=== PATIENT | male | born 1980 | race Caucasian/White ===

== ENCOUNTER → 2019-09-23 | Outpatient (CLI) | payer OTHER, SELFPAY ==
[2019-09-23 12:47] LABS: Cholesterol 219 mg/dL (200); Glucose 92 mg/dL (74-106); High Density Lipoprotein 33 mg/dL; Triglycerides 473 mg/dL
== END | disposition home or self-care (01) ==
LOC: MTLAB 10:17
PROVIDERS: PCP Family Medicine; Referring Provider Family Medicine; Visit Provider Family Medicine
DX: Z00.00 Encounter for general adult medical examination without abnormal findings (principal)
CPT/HCPCS: 36415; 80061; 82947

== ENCOUNTER 2021-10-31 08:10 | Emergency (ER) | payer BC, OTHER, SELFPAY ==
[2021-10-31 08:11] VITALS: BP 122/84; PULSE 77; RESP 14; TEMP 36.7; O2SAT 97; BMI 30.4
--- NOTE | 2021-10-31 08:35 | EDS_ITS ---
HPI History of Present Illness Chief Complaint: Laceration Informant: patient Narrative Narrative: Left lower lip laceration 2 hours prior to arrival. Playing basketball to get elbow to the lip. No anticoagulation medicines. Tetanus 2 years ago. States mild dental pain and upper. No LOC. No neck pain. Tetanus Immunization: <5 years [facility] Medical History no medical history Home Medications NK 10/31/21 [History Last Taken Unknown] Allergy/AdvReac Type Severity Reaction Status Date / Time No Known Allergies Allergy Verified 10/31/21 08:11 Surgical History no surgical history Social History Smoking Status: Never smoker ROS ROS ED Constitutional Constitutional ED: Denies chills, fever(s) or sweats Eyes Eyes: Denies change in vision ENT ENT ED: Denies dysphagia or sore throat Cardiovascular Cardiovascular: Denies chest pain, leg edema, palpitations or racing heartbeat Respiratory/Chest Respiratory/Chest: Denies cough, dyspnea or dyspnea on exertion Gastrointestinal Gastrointestinal: Denies abdominal pain, diarrhea, nausea or vomiting Genitourinary Genitourinary ED: Denies dysuria, hematuria or urinary frequency Musculoskeletal Musculoskeletal: Denies back pain, extremity pain or neck pain Integumentary Reports rash and other Details: Left lower lip laceration ; Denies wounds Neurologic Neurologic: Denies headache(s), paresthesias or weakness EXAM Physical Exam Const Vital Signs: 10/31/21 08:11 Temperature 98.1 F Temperature Source Oral Pulse Rate 77 Respiratory Rate 14 Blood Pressure 122/84 H Blood Pressure Mean 96 Pulse Ox 97 Oxygen Delivery Method Room Air Positive well nourished and well developed General Appearance ED: well developed and NAD HEENT Reports moist mucous membranes HEENT Narrative: Left lower lip, 2 cm laceration just crossing at the vermilion border, there is no active bleeding. There is no dental loosening, there is mild tenderness to left upper incisor. No avulsions. Also very superficial inner lower lip laceration 1.5 cm there is no active bleeding or open. normocephalic Eyes PERRL, EOMs intact bilaterally and conjunctivae normal General Eye ED: Yes normal appearance of both eyes Neck no lymphadenopathy and supple General: Negative for tenderness Chest Wall Chest: Negative for tenderness Resp normal respiratory effort and normal air movement Effort and Inspection: symmetric chest movement; Negative for respiratory distress Cardio regular rate, regular rhythm and no murmurs Peripheral Pulses: pulses 2+ throughout GI normal to inspection, nondistended, normoactive bowel sounds and non-tender Palpation: Negative for guarding or rebound tenderness present Back/Spine no CVA tenderness and no thoracic nor lumbar tenderness Extremity normal to inspection General Extremety ED: Negative for edema or tenderness General Extremity: Negative for edema Neuro oriented x3 and no sensory deficits noted Sensorium / Orientation: awake and alert Skin no rashes or lesions noted and no wounds MDM MDM MDM Narrative Medical decision making narrative: Patient with lip laceration just crossing veronica milion border. This was repaired with no complications. Patient did feel nausea during procedure due to his anxiety of the procedure. Wound care discussed. Follow-up with his PCP for suture removal. Discussed inner lip laceration will heal with no complications. All questions were answered. Procedure note: Verbal consent. Normal sterile conditions. 3 cc lidocaine 1% used for submental block on the left side. Good anesthetic. Normal saline cleanse of the wound with sterile gauze. First 6-0 suture placed to reapproximate the vermilion border additional 2 sutures were placed. Good ap proximation, patient taught procedure well. Discharge Plan Triage Chief Complaint: Laceration ED Provider: Franklin Lugo Dx/Rx/DC Orders Clinical Impression: Laceration of lower lip, Injury to lip Instructions: ED Laceration, Lip or Mouth Prescriptions: No Action NK RF: 0 Primary Care Provider: Anand Bal Referrals: Anand Bal MD [Primary Care Provider] - 5-7 Days Activity Restrictions/Additional Instructions: 3, 6-0 nylon sutures placed to close your lower lip. Evaluate to have removed in 5 to 7 days. Use Chapstick to keep moist. Clean with soap and water. Disposition Disposition: Home, Self Care Discharge Date/Time: 10/31/21 09:40
[2021-10-31] MEDS: Lidocaine 1% (20 ml mdv) 20 ML Vial INFILT (08:50)
== END 2021-10-31 09:40 | disposition home or self-care (01) ==
PROVIDERS: Emergency Provider Emergency Medicine; PCP Family Medicine; Visit Provider Emergency Medicine
DX: S01.511A Laceration without foreign body of lip, initial encounter (principal); W50.0XXA Accidental hit or strike by another person, initial encounter; Y93.67 Activity, basketball; Y99.9 Unspecified external cause status; Y92.9 Unspecified place or not applicable
CPT/HCPCS: 12011; 99283

== ENCOUNTER 2023-03-07 22:45 | Emergency (ER) | payer BC, OTHER, SELFPAY ==
[2023-03-07 22:46] VITALS: BP 140/98; PULSE 81; RESP 18; TEMP 36.8; O2SAT 100; BMI 31.4
--- NOTE | 2023-03-07 23:10 | EKG12_ITS ---
Test Reason : CP Blood Pressure : / mmHG Vent. Rate : 071 BPM Atrial Rate : 071 BPM P-R Int : 182 ms QRS Dur : 112 ms QT Int : 364 ms P-R-T Axes : 058 013 029 degrees QTc Int : 395 ms Normal sinus rhythm Normal ECG Confirmed by ROSALINO LOCKWOOD MD ([id number]), deputy editor in chief SOL LOCKETT ([id number]) on 03/12/2023 2:06:15 PM Referred By: Confirmed By:ROSALINO LOCKWOOD MD
--- NOTE | 2023-03-07 23:11 | ED.VIS.CHEST ---
HPI History of Present Illness Chief Complaint: Chest Pain Informant: patient and spouse/S.O. Narrative Narrative: Patient has been having nonpleuritic left-sided chest discomfort that is relatively mild and without associated symptoms for the past hour or so. 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 He denies any sweating, lightheadedness, nausea or vomiting, radiation of discomfort, but it is in his left chest, his left shoulder, it is not worse with moving or taking a breath. States he has had this off-and-on in the past multiple times but this is a little more persistent. He states he has no medical problems that he knows of but does not see a doctor. Family history of heart disease his dad started having issues in his 40s and has stents. CVD Risk Factors: Positive for Hypercholesterolemia (only known due to review of old outpt labs) and Family History 1' </=55; Negative for Hypertension, Diabetes or Smoking PE Risk Factors: Negative for Recent Travel/Surgery, Recent Immobilization, Prior DVT or PE, Cancer or OCP + Smoking + >/=35 PFSH PFSH Medical History no medical history no medical history Home Medications NK 10/31/21 [History Last Taken Unknown] Allergy/AdvReac Type Severity Reaction Status Date / Time No Known Allergies Allergy Verified 03/07/23 22:48 Surgical History no surgical history Social History Smoking Status: Never smoker ROS [facility] ED Constitutional Constitutional ED: Denies chills or fever(s) Eyes Eyes: Denies change in vision or diplopia ENT ENT ED: Denies rhinorrhea or sore throat Cardiovascular Cardiovascular: Reports chest pain; Denies palpitations Respiratory/Chest Respiratory/Chest: Denies cough or dyspnea Gastrointestinal Gastrointestinal: Denies abdominal pain, diarrhea, nausea or vomiting Genitourinary Genitourinary ED: Denies dysuria or hematuria Musculoskeletal Musculoskeletal: Denies back pain or neck pain Integumentary Denies abscess or rash Neurologic Neurologic: Denies headache(s), paresthesias or weakness Psychiatric Psychiatric: Denies anxiety or suicidal thoughts EXAM Physical Exam Const Vital Signs: 03/07/23 22:46 03/07/23 22:52 03/07/23 23:25 Temperature 98.3 F Temperature Source Temporal Pulse Rate 81 Respiratory Rate 18 Respiratory Effort Normal Non-Labored Blood Pressure 140/98 H Blood Pressure Mean 112 Pulse Ox 100 98 Oxygen Delivery Method Room Air Room Air 03/07/23 23:46 03/08/23 00:00 03/08/23 01:00 Temperature Temperature Source Pulse Rate 74 76 74 Respiratory Rate 16 Respiratory Effort Blood Pressure 130/80 H Blood Pressure Mean 96 Pulse Ox 98 Oxygen Delivery Method Room Air Positive well nourished and well developed General Appearance ED: well developed and NAD HEENT Reports moist mucous membranes normocephalic and atraumatic Eyes PERRL and EOMs intact bilaterally Neck full ROM and supple Chest Wall inspection of chest normal and palpation of chest normal Resp normal respiratory effort and clear to auscultation bilaterally Cardio regular rate, regular rhythm and no murmurs Rate: Negative for bradycardia or tachycardic GI non-tender and non-distended Auscultation: normoactive bowel sounds Palpation: soft Back/Spine no CVA tenderness General Back: other FROM Extremity normal to inspection and no calf tenderness General Extremety ED: Negative for edema, pulses abnormal or tenderness General Extremity: Negative for edema or pulses abnormal Neuro oriented x3, CN's II-XII intact bilaterally and no sensory deficits noted Sensorium / Orientation: awake and alert Motor Exam: strength 5/5 throughout Psych mental status grossly normal Skin no rashes or lesions noted and no wounds Heart Score History: Slightly/Non-Suspicious ECG: Normal Age: </= 45 years Risk Factors: 1 or 2 Risk Factors Score: 1 MDM MDM MDM Narrative Medical decision making narrative: PERC score 0, therefore essentially ruling out PE in context. Symptoms or not consistent with PE classically anyway, he was reassured there as well as his EKG which is normal. There was some delay in getting his blood work back, due to it being light hemic. I reviewed old labs showing that he had high cholesterol and triglycerides 3 years ago, these were outpatient labs. I discussed all this with him, certainly it is a risk factor, but does not change his heart score, his troponin is negative and we did a 2-hour delta which was negative as well. Chest x-ray is normal. He was offered something for his discomfort, he states he is not worried about the severity of the discomfort, he was just concerned about the cause. He will need fasting lipids, and follow-up to be evaluated for the right medications if indicated. I discussed this at length with him and his significant other. He is comfortable with that plan. History & Record Review Additional record(s) reviewed:: Prior labs (chol values from 2019 - abn high) Lab Data Attestation: I reviewed the patient's lab results. Labs: Laboratory Results - last 24 hr 03/07/23 03/07/23 03/08/23 22:56 23:34 01:40 WBC 9.2 RBC 4.84 Hgb 15.4 Hct 44.1 MCV 91.0 MCH 31.6 MCHC 34.8 RDW Std Deviation 38.5 RDW Coeff of Tato 11.7 Plt Count 305 MPV 10.5 Immature Gran % (Auto) 0.400 Neut % (Auto) 54.8 Lymph % (Auto) 35.5 [place] % (Auto) 7.1 Eos % (Auto) 1.7 Baso % (Auto) 0.5 Absolute Neuts (auto) 5.1 Absolute Lymphs (auto) 3.28 Nucleated RBC % 0 Sodium Cancelled 137 Potassium Cancelled 5.3 H Chloride Cancelled 106 Carbon Dioxide Cancelled 27.0 Anion Gap Cancelled 4 L BUN Cancelled 18 Creatinine Cancelled 1.17 Estim Creat Clear Calc Cancelled 102.01 Est GFR (MDRD) Af Amer Cancelled 88 Est GFR (MDRD) Non-Af Cancelled 73 BUN/Creatinine Ratio Cancelled 15.4 Glucose Cancelled 105 Calcium Cancelled 8.4 L Troponin I High Sens Cancelled 4 3 Radiography Chest X-Ray - ED: 2 View, Read by ED Physician, Normal, Heart, Lungs, Mediastinum, Bony Structures and No Acute Disease Diagnostic Testing: Clinical Impression(s) from Imaging Studies Chest X-Ray 03/07/23 23:20 IMPRESSION: No acute radiographic abnormalities. Electronically Signed: Garrick Feng MD at 0:07 EDT , Rhythm Strip Rhythm Strip: Sinus Rhythm Rate: 80 Ectopy: PVC(s) EKG Initial EKG: Attestation: I personally reviewed and interpreted this EKG as follows: Interpretation: Sinus Rhythm and No Acute Injury Pattern Comments: Normal EKG Discharge Plan Triage Chief Complaint: Chest Pain ED Provider: Chace Rodriguez Dx/Rx/DC Orders Clinical Impression: Left-sided chest pain Instructions: ED Chest Pain, Noncardiac Prescriptions: No Action NK Primary Care Provider: Gissel Donald Referrals: Anand Bal MD [Non-Staff] - (Call for follow-up appointment at the practice) Disposition Disposition: Home, Self Care
--- NOTE | 2023-03-07 23:20 | RAD_ITS ---
INDICATION: chest pain EXAMINATION/TECHNIQUE: X-RAY - XR Chest 2 Views COMPARISON: None. FINDINGS: The lungs are clear. Tortuous and calcified thoracic aorta. The heart is not enlarged. No pleural effusion or pneumothorax. No acute osseous abnormalities. RAD/Chest PA and Lateral IMPRESSION: No acute radiographic abnormalities. Electronically Signed: Garrick Feng MD at 0:07 EDT ,
[2023-03-07 23:25] VITALS: O2SAT 98
[2023-03-07 23:46] VITALS: BP 130/80; PULSE 74; RESP 16; O2SAT 98
[2023-03-08] VITALS: PULSE 76
[2023-03-08 00:07] LABS: Absolute Lymphocyte Count 3.28 X10^3/uL (0.83-4.51); Absolute Neutrophil Count 5.1 X10^3/uL (2.0-7.7); Basophil# 0.05 X10^3/uL; Basophil% 0.5 % (0-1); Eosinophil# 0.16 X10^3/uL; Eosinophils% 1.7 % (0-5); Hematocrit 44.1 % (40-54); Lymphocyte # 3.28 X10^3/ul (0.83-4.51); Lymphocyte % 35.5 % (19-41); Mean Platelet Vol. 10.5 fl (6.2-12.0); Monocyte# 0.66 X10^3/uL; Monocyte% 7.1 % (0-10); NRBC Flagged by Analyzer 0 % (0-5); Neutrophil # 5.05 X10^3/uL (2.7-7.7); Neutrophil % 54.8 % (47-70); POSITIVE COUNT YES; Platelet Count 305 K/mm3 (150-450); RBC Distribution Width CV 11.7 % (11.6-14.6); RBC Distribution Width SD 38.5 fl (35.1-43.9); Red Blood Count 4.84 M/mm3 (4.6-6.2); White Blood Count 9.2 K/mm3 (4.4-11.0)
[2023-03-08 00:09] LABS: Hemoglobin 15.4 g/dL (13.0-16.5)
[2023-03-08 00:10] LABS: Mean Corp Hgb Conc 34.8 g/dL (32-36); Mean Corpuscular Hgb 31.6 pg (27.0-32.0)
[2023-03-08 00:37] LABS: BUN 18 mg/dL (7-18); BUN/Creat Ratio 15.4 RATIO (10-20); Creatinine, Serum 1.17 mg/dL (0.70-1.30); EST Glomerular Filtration Rate 73 mL/min (>60); Est Glom Filt Rate - Afr Amer 88 mL/min (>60); Estimated Creatinine Clearance 102.01 ml/min; Glucose 105 mg/dL (74-106)
[2023-03-08 00:38] LABS: Anion Gap 4 (5-15); Calcium,Total 8.4 mg/dL (8.5-10.1); Chloride 106 mmol/L (98-107); Sodium Level 137 mmol/L (136-145); Troponin-I HS (w/2H Reflex) 4 pg/mL (3.0-78.0)
[2023-03-08 00:39] LABS: Potassium 5.3 mmol/L (3.5-5.1)
[2023-03-08 01:00] VITALS: PULSE 74
[2023-03-08 01:38] LABS: Reflex Troponin-HS? (from REC) Y
[2023-03-08 02:00] VITALS: PULSE 73; RESP 16; O2SAT 97
[2023-03-08 02:17] LABS: Troponin-I HS 3 pg/mL (3.0-78.0)
[2023-03-08 02:20] VITALS: BP 139/71; PULSE 72; RESP 15; O2SAT 98
== END 2023-03-08 02:25 | disposition home or self-care (01) ==
PROVIDERS: Emergency Provider Emergency Medicine; PCP Nurse Practitioner Family; Visit Provider Emergency Medicine
DX: R07.89 Other chest pain (principal); E78.00 Pure hypercholesterolemia, unspecified
CPT/HCPCS: 71046; 80048; 84484; 85025; 93005; 99285; A4216

== ENCOUNTER → 2023-03-14 | Outpatient (CLI) | payer BC, OTHER, SELFPAY ==
[2023-03-14 13:04] LABS: Hemoglobin A1c 4.9 % (3.8-5.6)
[2023-03-14 13:35] LABS: AST(SGOT) 14 U/L (15-37); Alanine Aminotransfer ALT/SGPT 50 U/L (16-61); Albumin, Serum 4.2 g/dL (3.2-5.0); Alkaline Phosphatase 103 U/L (45-117); Bilirubin, Direct 0.07 mg/dL (0.00-0.30); Cholesterol 156 mg/dL (200); Globulin 3.1 g/dL (2.2-4.2); Glucose 147 mg/dL (74-106); High Density Lipoprotein 21 mg/dL; Protein, Total 7.3 g/dL (6.4-8.2); Thyroid Stim Hormone (TSH) 2.34 uIU/mL (0.358-3.74); Triglycerides 2070 mg/dL
== END | disposition home or self-care (01) ==
LOC: BFHLAB 10:25
PROVIDERS: PCP Family Medicine; Referring Provider Family Medicine; Visit Provider Family Medicine
DX: Z00.00 Encounter for general adult medical examination without abnormal findings (principal); R53.83 Other fatigue
CPT/HCPCS: 36415; 80061; 80076; 82947; 83036; 84443

== ENCOUNTER → 2023-03-28 | Outpatient (CLI) | payer BC, OTHER, SELFPAY ==
[2023-03-28 13:02] LABS: Cholesterol 273 mg/dL (200); Glucose 88 mg/dL (74-106); High Density Lipoprotein 38 mg/dL; Triglycerides 317 mg/dL; Very Low Density Lipoprotein 63 mg/dL (5-40)
[2023-03-29 04:07] LABS: LDL, Direct 120295 167 mg/dL (0-99)
== END | disposition home or self-care (01) ==
PROVIDERS: PCP Family Medicine; Referring Provider Family Medicine; Visit Provider Family Medicine
DX: E78.5 Hyperlipidemia, unspecified (principal); R73.01 Impaired fasting glucose
CPT/HCPCS: 36415; 80061; 82947; 83721

== ENCOUNTER → 2023-04-17 | Outpatient (CLI) | payer BC, OTHER, SELFPAY ==
--- NOTE | 2023-04-17 13:26 | STRESSREP ---
Stress Test Report Date: 04/17/2023 Procedure: Exercise tolerance test Indications: Chest pain Consent: Per the patient Procedure: The patient exercised on a [place] protocol for 15 minutes achieving a peak heart rate of 179 bpm (100% predicted maximal heart rate) with a peak blood pressure 170/82 mmHg and a peak MET capacity of approximately 17.5 MET's. The baseline ECG demonstrated sinus rhythm. The peak exercise ECG demonstrated no ischemic changes. Occasional PVC noted at rest as well as in recovery. No PVCs with exercise. The functional capacity was considered excellent. The patient had no complaints of chest discomfort during exercise or recovery. The examination was discontinued secondary to target heart rate being achieved. Impression: 1. Technically adequate (percent predicted maximal heart rate greater than 85%) exercise tolerance test 2. Peak exercise ECG with no ischemic changes 3. Occasional PVC at rest as well as in recovery. No PVCs with exercise. This note was generated with Notizzaation software. It may contain incorrect words, spelling, and punctuation that were not noted in checking the note before signing.
== END | disposition home or self-care (01) ==
LOC: CVS 10:00
PROVIDERS: PCP Family Medicine; Referring Provider Family Medicine; Visit Provider Family Medicine
DX: R07.89 Other chest pain (principal)
CPT/HCPCS: 93017

== ENCOUNTER → 2023-04-25 | Outpatient (CLI) | payer BC, OTHER, SELFPAY | END | disposition home or self-care (01) | LOC: SL 09:46 | PROVIDERS: PCP Family Medicine; Referring Provider Family Medicine; Visit Provider Family Medicine | DX: G47.10 Hypersomnia, unspecified (principal); R53.83 Other fatigue; R06.83 Snoring | CPT/HCPCS: 95806 ==